=== PATIENT | female | born 1970 | race Caucasian/White ===

== ENCOUNTER 2019-04-02 13:37 | Observation (INO) ==
[2019-04-02 14:26] LABS: Hematocrit 40.2 % (37.0-47.0); Mean Cell Volume 88.5 fl (78-100); Mean Corpuscular Hemoglobin 28.6 pg (27-31); Mean Corpuscular Hgb Conc 32.3 g/dl (32-36); Mean Platelet Volume 9.7 fl (8-12.5); Neutrophil # 5.1 K/mm3 (1.3-6.0); Neutrophil % 59.7 % (42-75.0); Platelet Count 273 K/mm3 (150-450); Red Blood Count 4.54 M/mm3 (4.2-5.4); Red Cell Distribution Width 13.5 % (11.5-14.0); White Blood Count 8.6 K/mm3 (4.0-10.5)
[2019-04-02 14:42] LABS: Albumin * 3.8 gm/dl (3.4-5.0); Anion Gap 11.1 mmol/L (6.8-13.8); BUN/Creatinine Ratio 18.3 (9.0-21.6); Bilirubin, Total 0.3 mg/dL (0.0-1.1); Ca. Corrected For Albumin 8.7 mg/dL (8.4-10.2); Calcium * 8.9 mg/dL (7.9-10.9); Carbon Dioxide 28.4 mmol/L (24-32.6); Potassium 3.5 mmol/L (3.4-4.6); Total Protein 7.3 gm/dL (6.2-8.2)
[2019-04-02 14:44] LABS: INR 1.08 INR (0.92-1.08); Partial Thrombolplastin Time 25.8 Seconds (24-32); Prothrombin Time (Patient) 10.7 Seconds (9.1-10.7)
[2019-04-02] MEDS ORDERED: ASPIRIN 325 MG TABLET.DR PO ONE (15:26)
--- NOTE | 2019-04-02 16:52 | ERNOTE ---
Neuro HPI ER Record Date of Service: 04/02/19 Presenting Symptoms: parasthesia Time Seen by Provider: 04/02/19 13:53 Source: patient Exam Limitations: no limitations Immunizations: IMMUNIZATION HX Immunizations Up to Date Yes History of Influenza Vaccine No Hx Pneumococcal Vaccination Yes Allergies/Adverse Reactions: Allergies Allergy/AdvReac Type Severity Reaction Status Date / Time lidocaine Allergy Verified 04/02/19 13:45 tramadol AdvReac Mild Vomiting Verified 04/02/19 13:45 Home Medications: HOME MEDICATIONS Pantoprazole Sodium [Protonix] 40 mg PO BID 10/10/14 [Last Taken 10/09/14] Estradiol [Vivelle-Dot] 1 each TD 2XW 02/20/15 [Last Taken Unknown] ALPRAZolam [Xanax] 0.5 mg PO BID 02/21/15 [Last Taken Unknown] Metoclopramide HCl [Reglan] 5 mg PO ACHS 02/21/15 [Last Taken Unknown] Promethazine HCl [Phenergan] 25 mg PO Q6H PRN #16 tab 05/14/18 [Last Taken Unknown] Cholecalciferol (Vitamin D3) [Vitamin D3] 1,000 unit PO DAILY 10/15/18 [Last Taken Unknown] HYDROcodone/ACETAMINOPHEN [[place] 5-325] 1 ea PO Q4H #20 tab 10/15/18 [Last Taken Unknown] Ondansetron [Zofran Odt] 4 mg PO Q6H PRN #20 tab 10/15/18 [Last Taken Unknown] Potassium Chloride [Klor-Con M20] 20 meq PO TID 10/15/18 [Last Taken Unknown] Ranitidine HCl [Zantac] 150 mg PO BID 10/15/18 [Last Taken Unknown] Sucralfate [Carafate] 1 gm PO QID 10/15/18 [Last Taken Unknown] Venlafaxine HCl [Venlafaxine HCl ER] 37.5 mg PO DAILY 10/15/18 [Last Taken U nknown] Ziprasidone HCl [Geodon] 40 mg PO BID 10/15/18 [Last Taken Unknown] Triamcinolone Acetonide [Kenalog 0.1% Cream] 1 appl TOPICAL BID #45 gm 02/17/19 [Last Taken Unknown] hydrOXYzine PAMOATE [Vistaril] 25 mg PO Q4H PRN #24 cap 02/17/19 [Last Taken Unknown] predniSONE [Prednisone] 20 mg PO DAILY #27 tab 02/17/19 [Last Taken Unknown] - History of Present Illness Narrative: Patient presents to the ED for left arm paresthesia and paresthesia around the face. Some subjective weakness in the arm as well. No headache. No leg symptoms. This began acutely yesterday approx 1899. It has remained ever since. No CP or SOB. No trauma. Has never had anything like this before. Sx still present and have been constant since onset. Has not seen anyone else for this. Onset: other - 1899 yesterday Severity: mild - Character of Deficits Altered sensation: Present: LUE, other - around lips Additional Deficits: Absent: difficulty swallowing Baseline Gait: Present: walks w/o assistance Associated Symptoms: Denies: fever/chills, chest pain, decreased responsiveness Prior Treament: Denies: recently seen Review of Systems - Review of Systems Constitutional: Absent: fever EYE: Absent: double vision ENT: Absent: sore throat Respiratory: Absent: shortness of breath Cardiology: Absent: chest pain Gastrointestinal/Abdominal: Absent: abdominal pain Genitourinary: Absent: dysuria All Other Systems: All systems neg except as marked Medical History (Last Reviewed 04/02/19 @ 17:28 by Hayden Haynes MD) COPD (chronic obstructive pulmonary disease) Cyclic vomiting syndrome History of fibromyalgia Hx of degenerative disc disease Surgical History: Surgical History (Last Reviewed 04/02/19 @ 17:28 by Hayden Haynes MD) Hx of cholecystectomy (Acute) History of appendectomy (Acute) Hx of nephrostomy (Acute) Hx of section Hx of hysterectomy Family History: Family History (Last Reviewed 04/02/19 @ 17:28 by Hayden Haynes MD) Father Dementia Hypothyroidism Mother Hypertension Coronary artery disease Social History: (Last Reviewed 04/02/19 @ 17:28 by Hayden Haynes MD) Tobacco: Smoking Status: Former smoker Alcohol: alcohol intake: never Substance Use: substance use type: does not use Physical Exam - Physical Exam General Appearance: Present: alert, no apparent distress Head Exam: Present: normal inspection, no evidence of injury Eye Exam: Normal inspection: bilateral, PERRL: bilateral Ears, Nose, Throat: Present: normal ENT inspection Neck: Present: normal inspection Respiratory: Present: no respiratory distress, normal breath sounds, no accessory muscle use, lungs clear Cardiovascular/Chest: Present: regular rate, rhythm, normal peripheral pulses Gastrointestinal/Abdominal: Present: normal bowel sounds, nontender, nondistended, soft Back Exam: Absent: CVA tenderness (R), CVA tenderness (L) Extremity Exam: Present: normal inspection, non-tender Neurological Exam: Present: alert, other - No pronator drift and finger to nose wnl. CN intact. There may be some subjective weakness left arm c/w right but subtle. Subjective paresthesia. NIH - 0 Skin Exam: Present: normal color, warm/dry Progress - Results and Orders Patient's Lab Results:: I have reviewed the patient's lab results. - Vital Signs Patient's Vital Signs:: I have reviewed the patient's vital signs. Vital Signs: Vital Signs 04/02/19 13:41 04/02/19 14:22 04/02/19 14:24 Temperature 36.2 C 36.2 C Pulse Rate 104 H 92 90 Respiratory Rate 12 18 18 Blood Pressure 144/82 H 113/75 113/75 O2 Sat by Pulse Oximetry 95 94 94 04/02/19 14:58 04/02/19 15:28 04/02/19 15:58 Temperature Pulse Rate 84 85 86 Respiratory Rate 12 19 20 Blood Pressure 104/76 110/72 108/66 O2 Sat by Pulse Oximetry 95 95 96 - EKG EKG #1 EKG: NSR EKG read: Interp. by me EKG Comments: NSR rate 88. Non-specific ST/T wave changes, no STEMI noted - X-Ray X-Ray #1 X-Ray: chest Interpretation: Interp. by me X-ray Comments: I reviewed official radiology report - CT/Ultrasound CT/Ultrasound Narrative: I reviewed reports for head CT and MRI brain - Progress/Reassessment Chief Complaint: CerebroVascular Accident Progress Note-Subjective: 04/02/19 17:[address] Sanford communication coordinator for Neurology at [facility]. She recommends Carotid doppler, ECHO, lipid panel and monitoring coordinator. It was felt that hospital observation here would be appropriate. Patient is agreeable. I discussed this with Dr Hathaway who is communication coordinator and he is agreeable. I discussed warning signs and reasons to return as well as the need for close f/u. Neurology also r ecommends aspirin which was given in the ED. Departure Clinical Impression: Paresthesia, Stroke-like symptom - Departure Disposition: Still a patient Condition: Stable
[2019-04-02 17:06] LABS: Chol/HDL Risk Ratio 2.6 mg/dL (3.3-4.4)
--- NOTE | 2019-04-02 18:19 | HP ---
Chief Complaint - Chief Complaint Date of Service: 04/02/19 Time of Service: 18:18 Chief Complaint: paresthesia/TIA like s/sx History of Present Illness: Alysha Fraga is a 48-year-old white female with past medical history of COPD, fibromyalgia, cyclic vomiting syndrome, history of degenerative disc disease, who was admitted on 04/02/2019 because of paresthesias and TIA-like symptoms. One day prior to admission the patient was attending her daughter's wedding when she felt her left lower extremity to be dominant, tingly and heavy. She thought it was just because her lower extremity went to sleep and so she started moving it and it went away. She then later experienced the same thing with her upper extremity on the left. She felt her left upper extremity to be very heavy so much so that she could not drive home. At home she had episodes of fever and chills. When she woke up this morning she still continued to have the numbness and tingling of her left upper extremity and so she is scheduled an appointment to see her doctor in [facility] and they told her to go to the emergency room because she might be having a mini stroke. In the emergency room her head CT scan showed no acute intracranial process. Her MRI did show bright signal on the right parietal lobe which could be beginning chronic microvascular ischemic disease but could also be a demyelinating process, infection or vasculitis. Her white blood cell count was within normal limits. Her chest x-ray showed no acute cardiopulmonary findings. Her EKG showed normal sinus rhythm. Her ESR was elevated at 34. The ED physician talked with neurology in [facility] and she recommended the patient be admitted for observation to have an echocardiogram, carotid ultrasound, lipid profile, and aspirin started on her. Medical History (Last Reviewed 04/02/19 @ 17:45 by Kami Duffy RN) COPD (chronic obstructive pulmonary disease) Cyclic vomiting syndrome History of fibromyalgia Hx of degenerative disc disease Surgical History: Surgical History (Last Reviewed 04/02/19 @ 17:45 by Kami Duffy RN) Hx of cholecystectomy (Acute) History of appendectomy (Acute) Hx of nephrostomy (Acute) Hx of section Hx of hysterectomy Family History: Family History (Last Reviewed 04/02/19 @ 17:46 by Kami Duffy RN) Father Dementia Hypothyroidism Mother Hypertension Coronary artery disease Social History: (Last Reviewed 04/02/19 @ 17:46 by Kami Duffy RN) Tobacco: Smoking Status: Former smoker Alcohol: alcohol intake: never Substance Use: substance use type: does not use Review Of Systems (GEN) - Review of Systems Generalized/Overall Review: Absent: Chills - last night, Fever EENTM: Absent: Blurred Vision Respiratory: Absent: Cough, Shortness of Breath Cardiac: Absent: Chest Pain, Edema, Palpitations Abdominal: Absent: Nausea, Vomiting Genitourinary: Absent: Urgency, Frequency Musculoskeletal: Absent: Joint Pain, Muscle Pain Neurological: Present: Headache, Numbness, Tingling Skin: Absent: Lesions, Rash Endocrine: Absent: Intolerance to Cold, Intolerance to Heat Misc: All systems neg except as marked Immunizations: IMMUNIZATION HX Immunizations Up to Date Yes History of Influenza Vaccine No Hx Pneumococcal Vaccination Yes Allergies/Adverse Reactions: Allergies Allergy/AdvReac Type Severity Reaction Status Date / Time lidocaine Allergy Verified 04/02/19 17:46 topiramate Allergy Verified 04/02/19 17:46 tramadol AdvReac Mild Vomiting Verified 04/02/19 17:46 Home Medications: HOME MEDICATIONS Pantoprazole Sodium [Protonix] 40 mg PO BID 10/10/14 [Last Taken 10/09/14] Estradiol [Vivelle-Dot] 1 each TD 2XW 02/20/15 [Last Taken Unknown] ALPRAZolam [Xanax] 0.5 mg PO BID 02/21/15 [Last Taken Unknown] Metoclopramide HCl [Reglan] 5 mg PO ACHS 02/21/15 [Last Taken Unknown] Promethazine HCl [Phenergan] 25 mg PO Q6H PRN #16 tab 05/14/18 [Last Taken Unknown] Cholecalciferol (Vitamin D3) [Vitamin D3] 1,000 unit PO DAILY 10/15/18 [Last Taken Unknown] HYDROcodone/ACETAMINOPHEN [[place] 5-325] 1 ea PO Q4H #20 tab 10/15/18 [Last Taken Unknown] Ondansetron [Zofran Odt] 4 mg PO Q6H PRN #20 tab 10/15/18 [Last Taken Unknown] Potassium Chloride [Klor-Con M20] 20 meq PO TID 10/15/18 [Last Taken Unknown] Ranitidine HCl [Zantac] 150 mg PO BID 10/15/18 [Last Taken Unknown] Sucralfate [Carafate] 1 gm PO QID 10/15/18 [Last Taken Unknown] Venlafaxine HCl [Venlafaxine HCl ER] 37.5 mg PO DAILY 10/15/18 [Last Taken Unknown] Ziprasidone HCl [Geodon] 40 mg PO BID 10/15/18 [Last Taken Unknown] Triamcinolone Acetonide [Kenalog 0.1% Cream] 1 appl TOPICAL BID #45 gm 02/17/19 [Last Taken Unknown] hydrOXYzine PAMOATE [Vistaril] 25 mg PO Q4H PRN #24 cap 02/17/19 [Last Taken Unknown] predniSONE [Prednisone] 20 mg PO DAILY #27 tab 02/17/19 [Last Taken Unknown] Exam - Exam Vital Signs: Vital Signs - Last Taken Temp 36.8 C 04/02/19 16:51 Pulse 87 04/02/19 16:51 Resp 20 04/02/19 16:51 BP 111/84 04/02/19 16:51 Pulse Ox 97 04/02/19 16:51 Constitutional: Present: Alert, Oriented x3, Cooperative ENT Exam: Present: hearing grossly normal Eye Exam: bilateral eye: normal inspection, PERRL, EOMI Neck: Present: supple Respiratory: Present: normal breath sounds, No rales, No wheezing Cardiovascular/Chest: Present: regular rate, rhythm, no JVD, no murmur Abdomen: Present: Normal bowel sounds, soft, nontender, nondistended Extremity: Present: no pedal edema, no calf tenderness Neurologic: Present: emergency response technician II-XII nml as tested, no motor/sensory deficits, oriented x 3 Diagnostic Studies: Abnormal Lab Results 04/02/19 04/02/19 04/02/19 Range/Units 14:10 14:13 14:13 Monocytes % 11.4 H (0.0-9) % ESR 34 H (0-15) mm/hr Random Glucose (70-110) mg/dL ALT (19-67) U/L Cholesterol/HDL Ratio 2.6 L (3.3-4.4) mg/dL 04/02/19 Range/Units 14:13 Monocytes % (0.0-9) % ESR (0-15) mm/hr Random Glucose 114 H (70-110) mg/dL ALT 17 L (19-67) U/L Cholesterol/HDL Ratio (3.3-4.4) mg/dL Laboratory Results WBC 8.6 K/mm3 (4.0-10.5) 04/02/19 14:13 RBC 4.54 M/mm3 (4.2-5.4) 04/02/19 14:13 Hgb 13.0 gm/dL (12.5-16.0) 04/02/19 14:13 Hct 40.2 % (37.0-47.0) 04/02/19 14:13 MCV 88.5 fl (78-100) 04/02/19 14:13 MCH 28.6 pg (27-31) 04/02/19 14:13 MCHC 32.3 g/dl (32-36) 04/02/19 14:13 RDW 13.5 % (11.5-14.0) 04/02/19 14:13 Plt Count 273 K/mm3 (150-450) 04/02/19 14:13 MPV 9.7 fl (8-12.5) 04/02/19 14:13 Immature Gran % (Auto) 0.40 % (0.001-0.429) 04/02/19 14:13 Immature Gran # (Auto) 0.03 K/mm3 (0.000-0.0310) 04/02/19 14:13 Neutrophils % 59.7 % (42-75.0) 04/02/19 14:13 Lymphocytes % 27.3 % (20-51) 04/02/19 14:13 Monocytes % 11.4 % (0.0-9) H 04/02/19 14:13 Eosinophils % 0.7 % (0.0-3.0) 04/02/19 14:13 Basophils % 0.5 % (0.0-1.0) 04/02/19 14:13 Nucleated RBC % 0.0 k/mm3 (0-1) 04/02/19 14:13 Neutrophils # 5.1 K/mm3 (1.3-6.0) 04/02/19 14:13 Lymphocytes # 2.34 k/mm3 (1.5-3.5) 04/02/19 14:13 Monocytes # 1.0 k/mm3 (0.0-1.0) 04/02/19 14:13 Eosinophils # 0.1 k/mm3 (0.0-0.7) 04/02/19 14:13 Absolute Basophils 0.0 k/mm3 (0.0-0.1) 04/02/19 14:13 ESR 34 mm/hr (0-15) H 04/02/19 14:13 PT 10.7 Seconds (9.1-10.7) 04/02/19 14:13 INR (Anticoag Therapy) 1.08 INR (0.92-1.08) 04/02/19 14:13 PTT ([place]) 25.8 Seconds (24-32) 04/02/19 14:13 Sodium 140 mmol/L (132-142) 04/02/19 14:13 Plasma Sodium 140 mmol/L (130-142) 04/02/19 14:13 Potassium 3.5 mmol/L (3.4-4.6) 04/02/19 14:13 Chloride 104 mmol/L (97-106) 04/02/19 14:13 Carbon Dioxide 28.4 mmol/L (24-32.6) 04/02/19 14:13 Anion Gap 11.1 mmol/L (6.8-13.8) 04/02/19 14:13 BUN 15 mg/dL (3-23) 04/02/19 14:13 Creatinine 0.82 mg/dL (0.4-1.4) 04/02/19 14:13 Est GFR (Non-Af Amer) 79 mL/min (60-130) D 04/02/19 14:13 BUN/Creatinine Ratio 18.3 (9.0-21.6) 04/02/19 14:13 Random Glucose 114 mg/dL (70-110) H 04/02/19 14:13 Calcium 8.9 mg/dL (7.9-10.9) 04/02/19 14:13 Calcium Adj for Albumin 8.7 mg/dL (8.4-10.2) 04/02/19 14:13 Total Bilirubin 0.3 mg/dL (0.0-1.1) 04/02/19 14:13 AST 11 U/L (0-48) 04/02/19 14:13 ALT 17 U/L (19-67) L 04/02/19 14:13 Alkaline Phosphatase 110 U/L (50-170) 04/02/19 14:13 Troponin I Less than 0.017 ng/mL (0.00-0.10) 04/02/19 14:24 C-Reactive Prot, Quant 0.6 mg/dL (0.0-0.9) 04/02/19 14:10 Total Protein 7.3 gm/dL (6.2-8.2) 04/02/19 14:13 Albumin 3.8 gm/dl (3.4-5.0) 04/02/19 14:13 Triglycerides 89 mg/dL (30-200) 04/02/19 14:10 Cholesterol 161 mg/dL (0-200) 04/02/19 14:10 LDL Cholesterol 83 mg/dL (70-130) 04/02/19 14:10 VLDL Cholesterol 18 mg/dL (5-40) 04/02/19 14:10 HDL Cholesterol 60 mg/dL (40-60) 04/02/19 14:10 Cholesterol/HDL Ratio 2.6 mg/dL (3.3-4.4) L 04/02/19 14:10 Assessment/Plan - Narrative Narrative: Ion Fraga is a 48-year-old white female who was admitted for paresthesia and TIA-like signs/symptoms. Neurologist Dr. Villasenor in [facility] clinics recommended doing a carotid ultrasound, echocardiogram, lipid profile and cardiac monitoring under observation tonight. He did not recommend any spinal tap as per emergency room physician. We will schedule her ultrasound echocardiogram with bubble study in the morning. She had her lipid profile added to her labs which were acceptable. She got 325 of aspirin in the emergency room. Pending results she is for possible discharge tomorrow and to follow-up with your primary care physician. - Assessment/Plan (1) Paresthesia Assessment: subjective Problem: Acute (2) Stroke-like symptom Assessment: TIA like Problem: Acute (3) COPD (chronic obstructive pulmonary disease) Problem: Acute (4) Fibromyalgia Problem: Chronic
[2019-04-02] MEDS ORDERED: hydrOXYzine PAMOATE 25 MG CAPSULE PO PRN (19:41)
[2019-04-02] MEDS ORDERED: HYDROcodone/ACETAMINOPHEN 1 EACH TABLET PO PRN (19:41)
[2019-04-02] MEDS ORDERED: ESTRADIOL 0.025 MG TD SCH (19:45)
[2019-04-02] MEDS ORDERED: Doxepin Hcl [Silenor] 3 MG PO SCH (21:00)
[2019-04-02] MEDS: busPIRone HCL 5 MG TABLET PO SCH (21:14)
[2019-04-02] MEDS: ALPRAZolam 0.5 MG TABLET PO SCH (21:14)
[2019-04-02] MEDS: SUCRALFATE 1 G TABLET PO SCH (21:15)
[2019-04-02] MEDS: PANTOPRAZOLE SODIUM 40 MG TABLET.EC PO SCH (21:15)
[2019-04-02] MEDS: FAMOTIDINE 20 MG TABLET PO SCH (21:15)
[2019-04-02] MEDS: ZIPRASIDONE HCL 40 MG CAPSULE PO SCH (21:16)
[2019-04-03] MEDS ORDERED: VENLAFAXINE HCL 37.5 MG CAP.SR.24H PO SCH (09:00)
[2019-04-03] MEDS ORDERED: ROSUVASTATIN CALCIUM 10 MG TABLET PO SCH ×2 (09:00→21:00)
[2019-04-03] MEDS ORDERED: CHOLECALCIFEROL 1,000 UNIT CAPSULE PO SCH (09:00)
[2019-04-03] MEDS: busPIRone HCL 5 MG TABLET PO SCH (09:02)
[2019-04-03] MEDS: ZIPRASIDONE HCL 40 MG CAPSULE PO SCH (09:03)
[2019-04-03] MEDS: ALPRAZolam 0.5 MG TABLET PO SCH ×2 (09:04→12:21)
[2019-04-03] MEDS: PANTOPRAZOLE SODIUM 40 MG TABLET.EC PO SCH (09:10)
[2019-04-03] MEDS: SUCRALFATE 1 G TABLET PO SCH ×2 (09:10→12:21)
[2019-04-03] MEDS: POTASSIUM CHLORIDE 20 MEQ TABLET.SA PO SCH ×2 (09:10→12:21)
[2019-04-03] MEDS: FAMOTIDINE 20 MG TABLET PO SCH (09:11)
[2019-04-03] MEDS ORDERED: ASPIRIN 81 MG TAB.CHEW PO SCH (12:00)
--- NOTE | 2019-04-03 12:55 | DS ---
(1) Paresthesia Problem: Resolved (2) Stroke-like symptom Problem: Resolved (3) COPD (chronic obstructive pulmonary disease) Problem: Chronic (4) Fibromyalgia Problem: Chronic Date of Discharge:: 04/03/19 Description of Stay: Alysha Fraga is a 48-year-old white female with past medical history of COPD, fibromyalgia, cyclic vomiting syndrome, history of degenerative disc disease, who was admitted on 04/02/2019 because of paresthesias and TIA-like symptoms. One day prior to admission the patient was attending her daughter's wedding when she felt her left lower extremity to be dominant, tingly and heavy. She thought it was just because her lower extremity went to sleep and so she started moving it and it went away. She then later experienced the same thing with her upper extremity on the left. She felt her left upper extremity to be very heavy so much so that she could not drive home. At home she had episodes of fever and chills. When she woke up on the morning of admission she still continued to have the numbness and tingling of her left upper extremity and so she scheduled an appointment to see her doctor in [facility] and they told her to go to the emergency room because she might be having a mini stroke. In the emergency room her head CT scan showed no acute intracranial process. Her MRI did show bright signal on the right parietal lobe which could be beginning chronic microvascular ischemic disease but could also be a demyelinating process, infection or vasculitis. Her white blood cell count was within normal limits. Her chest x- ray showed no acute cardiopulmonary findings. Her EKG showed normal sinus rhythm. Her ESR was elevated at 34 but CRP was normal. The ED physician talked with neurology in [facility] and she recommended the patient be admitted for observation to have an echocardiogram, carotid ultrasound, lipid profile, and aspirin started on her. They did mnot recommend spinal tap. Her Lipd were within acceptable range. Her CUS did not TREVOR and her echo borderline concentric LVH, normal EF, indeteminate diastolic dysfunction, negative bubble study. This morning she says she no longer feel the numbness and tingling but her LUE still feel heavy but better. She got 325 of ASA in the Ed and will start her on baby ASA until she sees her PCP. She is stable to be discharge today and follow up with her PCP this week. She will need to be referred to Neurology for further evaluation. She says that that she had been worked up for inflammatory diseases before and was thought to have Sjogren but when she was seen by rheumatology she was told she did not have one. Procedures Performed: none Results and Findings: Lab Pending Results 04/02/19 14:10: Triglycerides 89, Cholesterol 161, LDL Cholesterol 83, VLDL Cholesterol 18, HDL Cholesterol 60, Cholesterol/HDL Ratio 2.6 L 04/02/19 14:10: C-Reactive Prot, Quant 0.6 04/02/19 14:13: WBC 8.6, RBC 4.54, Hgb 13.0, Hct 40.2, MCV 88.5, MCH 28.6, MCHC 32.3, RDW 13.5, Plt Count 273, MPV 9.7, Immature Gran % (Auto) 0.40, Immature Gran # (Auto) 0.03, Neutrophils % 59.7, Lymphocytes % 27.3, Monocytes % 11.4 H, Eosinophils % 0.7, Basophils % 0.5, Nucleated RBC % 0.0, Neutrophils # 5.1, Lymphocytes # 2.34, Monocytes # 1.0, Eosinophils # 0.1, Absolute Basophils 0.0 04/02/19 14:13: ESR 34 H 04/02/19 14:13: PT 10.7, INR (Anticoag Therapy) 1.08, PTT ([place]) 25.8 04/02/19 14:13: Sodium 140, Plasma Sodium 140, Potassium 3.5, Chloride 104, Carbon Dioxide 28.4, Anion Gap 11.1, BUN 15, Creatinine 0.82, Est GFR (Non-Af Amer) 79 D, BUN/Creatinine Ratio 18.3, Random Glucose 114 H, Calcium 8.9, Calcium Adj for Albumin 8.7, Total Bilirubin 0.3, AST 11, ALT 17 L, Alkaline Phosphatase 110, Total Protein 7.3, Albumin 3.8 04/02/19 14:24: Troponin I Less than 0.017 Discharge Location: Home Disposition: Home self-care Condition: Stable Discharge Activity: Activity as tolerated Discharge Diet: General/regular food Referrals: Cirilo Carvajal MD [Primary Care Provider] - Additional Patient Instructions (free text): Follow up with PCP this week- Dr. Carvajal. Prescriptions (Any new or edited meds): Aspirin [Aspirin Chewable] 81 mg PO DAILY #30 tab.chew [facility] [place] Complete Home Medications List: Complete Home Medication List: Pantoprazole Sodium [Protonix] 40 mg PO BID 10/10/14 Estradiol [Vivelle-Dot] 1 each TD 2XW 02/20/15 ALPRAZolam [Xanax] 0.5 mg PO TID 02/21/15 Promethazine HCl [Phenergan (Promethazine)] 25 mg PO Q6H PRN #16 tab 05/14/18 Cholecalciferol (Vitamin D3) [Vitamin D3] 1,000 unit PO DAILY 10/15/18 Potassium Chloride [Klor-Con M20] 20 meq PO TID 10/15/18 Venlafaxine HCl [Venlafaxine HCl ER] 75 mg PO DAILY 10/15/18 hydrOXYzine PAMOATE [Vistaril] 25 mg PO Q4H PRN #24 cap 02/17/19 Atorvastatin Calcium 20 mg PO DAILY 04/02/19 Doxepin HCl [Silenor] 3 mg PO HS 04/02/19 HYDROcodone/ACETAMINOPHEN [[place] 5-325] 1 ea PO DAILY PRN 04/02/19 Ziprasidone HCl [Geodon] 40 mg PO BID 04/02/19 Aspirin [Aspirin Chewable] 81 mg PO DAILY #30 tab.chew 04/03/19
[2019-04-03 15:49] VITALS: BP 112/81
--- NOTE | 2019-04-04 14:29 | ECHO ---
This report is available in the EMR
[2019-04-05 15:36] LABS: P-ANCA Titer DNR titer (<1:20)
== END 2019-04-03 16:40 | disposition home or self-care (01) ==
LOC: ER 13:37 → MS 13:37
PROVIDERS: ADMIT Internal Medicine; ATTEND Internal Medicine
DX: G45.9 Transient cerebral ischemic attack, unspecified; M79.7 Fibromyalgia; Z87.891 Personal history of nicotine dependence; R20.2 Paresthesia of skin; J44.9 Chronic obstructive pulmonary disease, unspecified
CPT/HCPCS: 36415; 70450; 70551; 71020; 71046; 80053; 80061; 84484; 85025; 85610; 85652; 85730; 86021; 86038; 86140; 86431; 93005; 93306; 93880; 99285